=== PATIENT | female | born 1995 | race Caucasian/White ===

== ENCOUNTER 2020-06-29 22:26 | Inpatient (IN) | payer OTHER ==
[2020-06-29] MEDS ORDERED: Morphine 4 MG/ML VIAL SLOW IVP SCH (23:30)
[2020-06-29] MEDS ORDERED: Ibuprofen 800 MG TAB PO SCH (23:45)
[2020-06-29] MEDS ORDERED: Gentamicin 20 MG/2 ML PF (Neonates) IVPB SCH (23:45)
[2020-06-29] MEDS ORDERED: SODIUM CHLORIDE 0.9% IVPB SCH (23:45)
[2020-06-29] MEDS ORDERED: GENTAMICIN IVPB SCH (23:45)
[2020-06-29] MEDS ORDERED: Clindamycin/D5W 900 MG in Premix Bag 1 BAG IVPB SCH (23:59)
[2020-06-30] MEDS ORDERED: Gentamicin Sulfate 80 MG in Premix Bag 1 BAG IVPB SCH (00:30)
[2020-06-30] MEDS: Ondansetron ODT 4 MG TAB PO PRN ×3 (01:04→18:02)
[2020-06-30] MEDS: Ketorolac Tromethamine 30 MG/ML VIAL IVP SCH ×4 (01:19→19:45)
[2020-06-30] MEDS: Clindamycin/D5W 900 MG in Premix Bag 1 BAG IVPB SCH ×3 (03:48→19:49)
[2020-06-30] MEDS: Morphine 4 MG/ML VIAL SLOW IVP PRN ×2 (06:10→21:19)
[2020-06-30 06:57] LABS: Anion Gap 10 mmol/L (10-20); BUN (Urea Nitrogen) 5 mg/dL (7.0-18.7); Calc. Creatinine Clearance 121 mL/min (70-130); Calcium 7.8 mg/dL (7.8-10.44); Carbon Dioxide 22 mmol/L (22-29); Chloride 110 mmol/L (98-107); Glucose 95 mg/dL (70-105); Potassium 3.9 mmol/L (3.5-5.1); Sodium 138 mmol/L (136-145)
[2020-06-30 07:17] LABS: #Monocytes 0.5 10x3/uL (0.0-1.1); #Neutrophils 7.2 10x3/uL (1.5-8.4); %Basophils 0.1 % (0.0-2.0); %Eosinophils 0.5 % (0.0-6.0); %Lymphocytes 8.3 % (18.0-47.0); %Monocytes 5.4 % (0.0-10.0); %Neutrophils 85.1 % (40.0-75.0); Hemoglobin 8.4 g/dL (12.0-15.5); Mean Corpuscular HGB CONC 30.2 g/dL (32.0-36.0); Mean Corpuscular Hemoglobin 29.8 pg (27.0-33.0); Mean Corpuscular Volume 98.6 fl (81.6-98.3); Mean Platelet Volume 8.3 fl (7.4-10.4); Platelet Count 190 10x3/uL (150-450); RBC Distribution Width 17.6 % (11.5-14.5); Red Blood Cell (RBC) Count 2.82 10x6/uL (3.90-5.03); White Blood Cell (WBC) Count 8.5 10x3/uL (3.5-10.5)
[2020-06-30] MEDS ORDERED: cefTRIAXone\\ROCEPHIN 2 GM in Sodium Chloride 0.9% 100 ML IVPB SCH (09:00)
[2020-06-30] MEDS ORDERED: Morphine 2 MG/ML VIAL SLOW IVP SCH ×2 (09:45→11:00)
[2020-06-30] MEDS ORDERED: Acetaminophen 500 MG TAB PO PRN (10:39)
[2020-06-30] MEDS: Acetaminophen 500 MG TAB PO PRN ×2 (11:14→18:03)
[2020-06-30] MEDS ORDERED: Fentanyl 100 MCG/2 ML VIAL SLOW IVP SCH (12:00)
[2020-06-30 12:30] LABS: ALT (SGPT) 11 U/L (8-55); AST (SGOT) 12 U/L (5-34); Albumin 3.1 g/dL (3.5-5.0); Alkaline Phosphatase 38 U/L (40-110); Anion Gap 10 mmol/L (10-20); BUN (Urea Nitrogen) 4 mg/dL (7.0-18.7); Bilirubin, Total 0.4 mg/dL (0.2-1.2); Calc. Creatinine Clearance 115 mL/min (70-130); Calcium 8.2 mg/dL (7.8-10.44); Carbon Dioxide 23 mmol/L (22-29); Chloride 108 mmol/L (98-107); Globulin 2.6 g/dL (2.4-3.5); Glucose 91 mg/dL (70-105); Lipase 8 U/L (8-78); Potassium 3.6 mmol/L (3.5-5.1); Protein, Total 5.7 g/dL (6.0-8.3); Sodium 137 mmol/L (136-145)
[2020-06-30] MEDS: Morphine 2 MG/ML VIAL SLOW IVP PRN ×3 (16:08→23:44)
[2020-06-30] MEDS: cefTRIAXone\\ROCEPHIN 2 GM in Sodium Chloride 0.9% 100 ML IVPB SCH (17:27)
[2020-06-30] MEDS ORDERED: Gentamicin 20 MG/2 ML PF (Neonates) IVPB SCH (21:00)
[2020-06-30] MEDS: GENTAMICIN IVPB SCH (21:49)
[2020-06-30] MEDS: SODIUM CHLORIDE 0.9% IVPB SCH (21:49)
[2020-07-01] MEDS: Ondansetron ODT 4 MG TAB PO PRN ×2 (00:50→18:07)
[2020-07-01] MEDS: Morphine 4 MG/ML VIAL SLOW IVP PRN ×2 (03:35→07:17)
[2020-07-01] MEDS: Clindamycin/D5W 900 MG in Premix Bag 1 BAG IVPB SCH ×3 (03:39→20:16)
[2020-07-01] MEDS ORDERED: Ibuprofen 600 MG TAB PO PRN (07:07)
[2020-07-01 07:10] LABS: #Monocytes 0.4 10x3/uL (0.0-1.1); #Neutrophils 8.1 10x3/uL (1.5-8.4); %Basophils 0.1 % (0.0-2.0); %Eosinophils 0.1 % (0.0-6.0); %Lymphocytes 4.8 % (18.0-47.0); %Monocytes 4.9 % (0.0-10.0); %Neutrophils 89.8 % (40.0-75.0); Hemoglobin 8.6 g/dL (12.0-15.5); Mean Corpuscular HGB CONC 31.4 g/dL (32.0-36.0); Mean Corpuscular Hemoglobin 30.1 pg (27.0-33.0); Mean Corpuscular Volume 95.8 fl (81.6-98.3); Mean Platelet Volume 8.2 fl (7.4-10.4); Platelet Count 218 10x3/uL (150-450); RBC Distribution Width 17.6 % (11.5-14.5); Red Blood Cell (RBC) Count 2.86 10x6/uL (3.90-5.03)
[2020-07-01] MEDS: Ondansetron PF 4 MG/2 ML Vial IVP PRN ×2 (07:12→12:53)
[2020-07-01] MEDS: HYDROcodone/Acetaminophen 7.5/325 mg Tablet PO PRN ×4 (08:38→22:18)
[2020-07-01] MEDS: Morphine 2 MG/ML VIAL SLOW IVP PRN (12:53)
[2020-07-01] MEDS: cefTRIAXone\\ROCEPHIN 2 GM in Sodium Chloride 0.9% 100 ML IVPB SCH (18:15)
[2020-07-01] MEDS: GENTAMICIN IVPB SCH (22:11)
[2020-07-01] MEDS: SODIUM CHLORIDE 0.9% IVPB SCH (22:11)
[2020-07-01] MEDS: Promethazine 25 MG TAB PO PRN (22:12)
[2020-07-02] MEDS: HYDROcodone/Acetaminophen 7.5/325 mg Tablet PO PRN ×4 (03:05→20:06)
[2020-07-02] MEDS: Clindamycin/D5W 900 MG in Premix Bag 1 BAG IVPB SCH (03:06)
[2020-07-02 06:54] LABS: #Eosinphils 0.1 10x3/uL (0.0-0.5); #Monocytes 0.4 10x3/uL (0.0-1.1); #Neutrophils 3.9 10x3/uL (1.5-8.4); %Basophils 0.2 % (0.0-2.0); %Eosinophils 1.3 % (0.0-6.0); %Lymphocytes 15.6 % (18.0-47.0); %Monocytes 8.3 % (0.0-10.0); %Neutrophils 74.2 % (40.0-75.0); Hemoglobin 8.9 g/dL (12.0-15.5); Mean Corpuscular Hemoglobin 29.8 pg (27.0-33.0); Mean Platelet Volume 8.4 fl (7.4-10.4); Platelet Count 216 10x3/uL (150-450); RBC Distribution Width 17.6 % (11.5-14.5); Red Blood Cell (RBC) Count 2.99 10x6/uL (3.90-5.03); White Blood Cell (WBC) Count 5.2 10x3/uL (3.5-10.5)
[2020-07-02] MEDS: Promethazine 25 MG TAB PO PRN ×2 (08:00→20:06)
[2020-07-02] MEDS ORDERED: metroNIDAZOLE 500 MG TAB PO SCH (09:00)
[2020-07-02] MEDS: Doxycycline 100 MG CAP PO SCH ×2 (09:17→23:01)
[2020-07-02] MEDS: Morphine 2 MG/ML VIAL SLOW IVP PRN (12:00)
[2020-07-02] MEDS: Ondansetron PF 4 MG/2 ML Vial IVP PRN ×2 (12:00→18:29)
[2020-07-02] MEDS: Ketorolac Tromethamine 30 MG/ML VIAL IVP SCH ×2 (17:04→23:03)
[2020-07-02] MEDS ORDERED: Morphine 4 MG/ML VIAL SLOW IVP SCH ×2 (17:15→18:00)
[2020-07-02 17:36] LABS: #Eosinphils 0.1 10x3/uL (0.0-0.5); #Monocytes 0.4 10x3/uL (0.0-1.1); #Neutrophils 4.4 10x3/uL (1.5-8.4); %Basophils 0.2 % (0.0-2.0); %Eosinophils 0.9 % (0.0-6.0); %Monocytes 7.4 % (0.0-10.0); %Neutrophils 75.2 % (40.0-75.0); Hemoglobin 8.7 g/dL (12.0-15.5); Lactic Acid 0.7 mmol/L (0.5-2.2); Mean Corpuscular HGB CONC 31.3 g/dL (32.0-36.0); Mean Corpuscular Hemoglobin 29.5 pg (27.0-33.0); Mean Corpuscular Volume 94.2 fl (81.6-98.3); Platelet Count 230 10x3/uL (150-450); RBC Distribution Width 17.8 % (11.5-14.5); Red Blood Cell (RBC) Count 2.95 10x6/uL (3.90-5.03); White Blood Cell (WBC) Count 5.8 10x3/uL (3.5-10.5)
[2020-07-02 17:42] LABS: ALT (SGPT) 11 U/L (8-55); AST (SGOT) 13 U/L (5-34); Albumin 3.2 g/dL (3.5-5.0); Alkaline Phosphatase 62 U/L (40-110); Anion Gap 13 mmol/L (10-20); BUN (Urea Nitrogen) 5 mg/dL (7.0-18.7); Bilirubin, Total 0.2 mg/dL (0.2-1.2); Calc. Creatinine Clearance 127 mL/min (70-130); Calcium 8.5 mg/dL (7.8-10.44); Carbon Dioxide 22 mmol/L (22-29); Chloride 107 mmol/L (98-107); Globulin 2.9 g/dL (2.4-3.5); Glucose 72 mg/dL (70-105); Lipase 22 U/L (8-78); Potassium 3.3 mmol/L (3.5-5.1); Protein, Total 6.1 g/dL (6.0-8.3); Sodium 139 mmol/L (136-145)
[2020-07-02] MEDS: cefOXitin Sodium/Dextrose,Iso 2 GM in Premix Bag 1 BAG IVPB SCH ×2 (17:44→23:04)
[2020-07-02] MEDS ORDERED: Ketorolac Tromethamine 30 MG/ML VIAL IVP SCH (18:00)
[2020-07-02 18:34] LABS: Iron Binding Capacity, Total 235 mcg/dL (265-497)
[2020-07-02 18:47] LABS: Iron Less than 33 ug/dL (50-170)
[2020-07-03] MEDS: Morphine 2 MG/ML VIAL SLOW IVP PRN ×2 (00:30→09:14)
[2020-07-03] MEDS: Ondansetron PF 4 MG/2 ML Vial IVP PRN ×2 (00:30→09:11)
[2020-07-03] MEDS: Promethazine 25 MG TAB PO PRN ×2 (03:11→16:06)
[2020-07-03] MEDS: Ketorolac Tromethamine 30 MG/ML VIAL IVP SCH ×2 (05:22→09:58)
[2020-07-03] MEDS: cefOXitin Sodium/Dextrose,Iso 2 GM in Premix Bag 1 BAG IVPB SCH ×4 (05:35→22:28)
[2020-07-03 06:14] LABS: #Monocytes 0.4 10x3/uL (0.0-1.1); #Neutrophils 5.6 10x3/uL (1.5-8.4); %Basophils 0.1 % (0.0-2.0); %Eosinophils 0.6 % (0.0-6.0); %Lymphocytes 10.6 % (18.0-47.0); %Neutrophils 82.3 % (40.0-75.0); Hemoglobin 8.4 g/dL (12.0-15.5); Mean Corpuscular HGB CONC 31.1 g/dL (32.0-36.0); Mean Corpuscular Hemoglobin 28.8 pg (27.0-33.0); Mean Corpuscular Volume 92.5 fl (81.6-98.3); Mean Platelet Volume 8.3 fl (7.4-10.4); Platelet Count 212 10x3/uL (150-450); RBC Distribution Width 17.8 % (11.5-14.5); Red Blood Cell (RBC) Count 2.92 10x6/uL (3.90-5.03); White Blood Cell (WBC) Count 6.8 10x3/uL (3.5-10.5)
[2020-07-03] MEDS: Doxycycline 100 MG CAP PO SCH ×2 (09:10→21:34)
[2020-07-03 13:47] VITALS: BMI 22.8
[2020-07-03] MEDS: HYDROcodone/Acetaminophen 7.5/325 mg Tablet PO PRN (19:35)
[2020-07-03] MEDS: Ibuprofen 800 MG TAB PO SCH (22:35)
[2020-07-04] MEDS: Promethazine 25 MG TAB PO PRN (00:02)
[2020-07-04] MEDS: HYDROcodone/Acetaminophen 7.5/325 mg Tablet PO PRN ×2 (00:02→08:50)
[2020-07-04] MEDS: Morphine 2 MG/ML VIAL SLOW IVP PRN (02:47)
[2020-07-04] MEDS: cefOXitin Sodium/Dextrose,Iso 2 GM in Premix Bag 1 BAG IVPB SCH (05:26)
[2020-07-04] MEDS: Ibuprofen 800 MG TAB PO SCH (05:26)
[2020-07-04 07:27] LABS: #Eosinphils 0.1 10x3/uL (0.0-0.5); #Monocytes 0.4 10x3/uL (0.0-1.1); %Basophils 0.4 % (0.0-2.0); %Eosinophils 2.4 % (0.0-6.0); %Lymphocytes 23.4 % (18.0-47.0); %Monocytes 9.2 % (0.0-10.0); %Neutrophils 64.2 % (40.0-75.0); Hemoglobin 9.1 g/dL (12.0-15.5); Mean Corpuscular HGB CONC 31.8 g/dL (32.0-36.0); Mean Corpuscular Hemoglobin 29.1 pg (27.0-33.0); Mean Corpuscular Volume 91.4 fl (81.6-98.3); Mean Platelet Volume 7.8 fl (7.4-10.4); Platelet Count 252 10x3/uL (150-450); RBC Distribution Width 18.2 % (11.5-14.5); Red Blood Cell (RBC) Count 3.13 10x6/uL (3.90-5.03); White Blood Cell (WBC) Count 4.7 10x3/uL (3.5-10.5)
[2020-07-04] MEDS: Doxycycline 100 MG CAP PO SCH (08:46)
[2020-07-04] MEDS ORDERED: metroNIDAZOLE 500 MG TAB PO SCH (09:00)
[2020-07-04 12:04] VITALS: BP 115/75; TEMP 98.3
[2020-07-06 18:52] LABS: t-Transglutaminase (tTG) IgA 0.9 EliAU/mL (<7 Negative); t-Transglutaminase (tTG) IgG Less than 0.6 EliAU/mL (<7 Negative)
== END 2020-07-04 13:48 | disposition home or self-care (01) | DRG 759 ==
LOC: UNDOADMIN 22:26 → CSHPP 22:26
PROVIDERS: ADMIT Obstetrics & Gynecology; ATTEND Obstetrics & Gynecology
DX: N70.93 Salpingitis and oophoritis, unspecified (principal); N73.9 Female pelvic inflammatory disease, unspecified; Z20.822 Contact with and (suspected) exposure to COVID-19; D50.9 Iron deficiency anemia, unspecified; E87.6 Hypokalemia; Z90.89 Acquired absence of other organs; Z83.2 Family history of diseases of the blood and blood-forming organs and certain disorders involving the immune mechanism; Z79.899 Other long term (current) drug therapy
CPT/HCPCS: 36415; 74177; 80048; 80053; 82728; 83516; 83540; 83550; 83605; 83690; 85025; J0694; J0696; J1580; J1885; J2270; J2405; J3490; Q0162; Q0169

== ENCOUNTER 2021-10-10 13:48 | Emergency (ER) | payer OTHER ==
[~2021-10-10 13:48] MED LIST: Iopamidol 300 61% 100 ML VIAL FS ONE
[2021-10-10 14:25] LABS: BHCG - Serum Negative (NEGATIVE); Pregs Control Background? CLEAR/WHITE (CLR/WHITE); Pregs Control Bar Appear? YES (CONTROL BAR)
[2021-10-10 14:26] LABS: #Eosinphils 0.1 10x3/uL (0.0-0.5); #Monocytes 0.2 10x3/uL (0.0-1.1); #Neutrophils 2.8 10x3/uL (1.5-8.4); %Basophils 0.5 % (0.0-2.0); %Eosinophils 1.4 % (0.0-6.0); %Lymphocytes 28.5 % (18.0-47.0); %Monocytes 5.3 % (0.0-10.0); %Neutrophils 64.1 % (40.0-75.0); Hemoglobin 11.1 g/dL (12.0-15.5); Mean Corpuscular Hemoglobin 27.2 pg (27.0-33.0); Platelet Count 171 10x3/uL (150-450); RBC Distribution Width 14.4 % (11.5-14.5); Red Blood Cell (RBC) Count 4.08 10x6/uL (3.90-5.03); White Blood Cell (WBC) Count 4.3 10x3/uL (3.5-10.5)
[2021-10-10 14:27] LABS: Bilirubin Neg (Negative); Blood, Urine 250 (Negative); Clarity Clear (Clear); Glucose, Urine (Dipstick) Normal (Negative); Ketone, Urine Negative (Negative); Leukocyte Negative (Negative); Nitrite Negative (Negative); Protein, Urine (Dipstick) Negative (Neg-Trace); Urobilinogen Normal mg/dL (Less than 2)
[2021-10-10 14:34] LABS: ALT (SGPT) 17 U/L (8-55); AST (SGOT) 18 U/L (5-34); Alkaline Phosphatase 40 U/L (40-110); Anion Gap 12 mmol/L (10-20); BUN (Urea Nitrogen) 11 mg/dL (7.0-18.7); Bilirubin, Total 0.3 mg/dL (0.2-1.2); Calc. Creatinine Clearance 0 mL/min (70-130); Calcium 9.1 mg/dL (7.8-10.44); Carbon Dioxide 22 mmol/L (22-29); Chloride 109 mmol/L (98-107); Estimated GFR 120; Globulin 2.7 g/dL (2.4-3.5); Glucose 109 mg/dL (70-105); Potassium 3.5 mmol/L (3.5-5.1); Protein, Total 6.7 g/dL (6.0-8.3); Sodium 139 mmol/L (136-145)
[2021-10-10 14:39] LABS: Squamous Epithelial 0-3 HPF (0-3); WBC/HPF 0-3 HPF (0-3)
[2021-10-10 14:40] LABS: Bacteria/HPF 1+ HPF (None Seen); Mucous/LPF 1+ LPF (<2+)
[2021-10-10] MEDS ORDERED: Acetaminophen 325 MG TAB ONE (16:00)
[2021-10-10] MEDS ORDERED: Ketorolac Tromethamine 30 MG/ML VIAL ONE (16:01)
== END 2021-10-10 19:25 | disposition home or self-care (01) ==
LOC: CSHERS 13:48
DX: N39.0 Urinary tract infection, site not specified (principal); M54.50 Low back pain, unspecified; Z20.822 Contact with and (suspected) exposure to COVID-19; D50.9 Iron deficiency anemia, unspecified
CPT/HCPCS: 36415; 74177; 80053; 81003; 81015; 84703; 85025; 87086; 96372; J1885; Q9967; U0003; U0005